=== PATIENT | female | born 1990 | race African-American/Black ===

== ENCOUNTER 2019-02-15 21:30 | Emergency (ER) | payer SELFPAY ==
[~2019-02-15] VITALS: Ht 170.2 cm; Wt 60.0 kg
[2019-02-15] MEDS ORDERED: OXYCODONE HCL/ACETAMINOPHEN 5/325MG TABLET PO ONE (22:15)
[2019-02-16] MEDS ORDERED: LIDOCAINE HCL/PF 1% 10 MG/ML 5ML VIAL IJ ONE (00:45)
[2019-02-16] MEDS ORDERED: BACITRACIN ZINC OINT UDPKT TOP ONE (00:45)
[2019-02-16 02:15] VITALS: BP 112/72
== END 2019-02-16 02:46 | disposition home or self-care (01) ==
LOC: ER 21:30
DX: S01.512A Laceration without foreign body of oral cavity, initial encounter (principal); S70.211A Abrasion, right hip, initial encounter; S20.311A Abrasion of right front wall of thorax, initial encounter; V49.88XA Car occupant (driver) (passenger) injured in other specified transport accidents, initial encounter; Y93.89 Activity, other specified; Y92.89 Other specified places as the place of occurrence of the external cause; Y99.8 Other external cause status
CPT/HCPCS: 12011; 71045; 73502; 93005; 99284; J3490; Z7610; 12051

== ENCOUNTER 2025-03-09 17:00 | Emergency (ER) | payer MEDICAID, SELFPAY ==
[~2025-03-09] VITALS: Ht 165.1 cm; Wt 60.0 kg
[2025-03-09 17:05] VITALS: O2SAT 98
[2025-03-09 18:44] VITALS: BP 124/76; PULSE 88; RESP 18; TEMP 36.7; O2SAT 98
== END 2025-03-09 18:48 | disposition home or self-care (01) ==
LOC: ER 17:00
DX: R00.2 Palpitations (principal); R03.0 Elevated blood-pressure reading, without diagnosis of hypertension; F41.9 Anxiety disorder, unspecified
CPT/HCPCS: 71045; 93005; 99285